=== PATIENT | male | born 1970 | race Caucasian/White ===

== ENCOUNTER 2018-01-04 08:48 | Day surgery (SDC) | payer OTHER ==
[~2018-01-04] VITALS: Ht 188 cm; Wt 101.2 kg
--- NOTE | ~2018-01-04 | HP ---
PATIENT: SHAAN MONSIVAIS MEDICAL RECORD: [id number] ACCOUNT: [id number] LOCATION:[facility] : 66 ADMISSION DATE: 01/04/18 HISTORY AND PHYSICAL EXAMINATION HISTORY: Shaan is a 47 years old. He has been having problems with nasal obstruction. He cannot breathe through his nose at all. He has been refractory to aggressive medical management. He snores horribly. He is being admitted for septoplasty, turbinate reduction, and uvulectomy. PAST MEDICAL HISTORY: Includes reactive airway disease. CURRENT MEDICATIONS: Naproxen, rosuvastatin, folic acid, methotrexate. ALLERGIES: PENICILLIN. PHYSICAL EXAMINATION: GENERAL: Healthy appearing, developmentally normal. FACE: Normal and symmetric. No lesions. EYES: Sclerae and conjunctivae are normal. EARS: Canals and TMs are normal. NOSE: He has got really tremendous severe septal deviation, possibly an old septal fracture, total obstruction of the nasal passage bilaterally. ORAL CAVITY AND OROPHARYNX: Status post tonsillectomy. He has got prominent edematous uvula tip. NECK: No masses. No adenopathy. CHEST: Clear. CARDIOVASCULAR: Regular rate and rhythm. No murmur. EXTREMITIES: Normal. IMPRESSION: Nasal obstruction, septal deviation, turbinate hypertrophy, recurrent uvula edema. PLAN: Septoplasty, bilateral inferior turbinate reduction, and partial uvulectomy. TRANSINT:[id number] Voice Confirmation ID: [id number] DOCUMENT ID: [id number] KADEN PARMAR MD at 1711 CC: [id number] DICTATION DATE: 01/03/18 1351 [facility] [facility]: 01/03/18 1429 [facility] 01/04/18 [place] [id number]
--- NOTE | ~2018-01-04 | OP ---
PATIENT NAME: LION MONSIVAIS MEDICAL RECORD: [id number] :66 [facility] [place] AD[facility] DATE: SURGEON: KADEN ZARAGOZA MD DATE OF OPERATION: 01/04/2018 PREOPERATIVE DIAGNOSES: Nasal obstruction, septal deviation, turbinate hypertrophy, and recurrent uvula edema. POSTOPERATIVE DIAGNOSES: Nasal obstruction, septal deviation, turbinate hypertrophy, and recurrent uvula edema. PROCEDURES: Septoplasty, bilateral inferior turbinate reduction, partial uvulectomy. SURGEON: Kaden Zaragoza MD ANESTHESIA: General orotracheal. BLOOD LOSS: Less than 5 cc. PACKING: Corbett splints bilaterally with some mupirocin ointment. COMPLICATIONS: None. DISPOSITION: Recovery, stable. DESCRIPTION OF PROCEDURE: He was brought to the operating room, placed in supine position, sedated and intubated by anesthesia. The eyes were taped. The nose was examined first using a headlight and nasal speculum. He had been decongested with Afrin preoperatively. The septum, floor of the nose, and both inferior turbinates were injected with a total of 1.5 cc of 1% lidocaine with 1:100,000 epinephrine. Afrin pledgets were placed in both sides. He was prepped and draped in usual sterile fashion. Then, all the Afrin pledgets were removed. A left-sided [place] incision was made and ipsilateral mucoperichondrial flap was elevated and a large bony cartilaginous spur on the left side was isolated. This was dissected free and removed. This allowed mobility of the septum back over the maxillary spine. Relaxing incisions were made superiorly in the cartilaginous septum to allow it to move back to the midline and the posterior inferior contralateral mucoperichondrial flap was elevated over a bony spur. Scissors were used to make a cut above and below that to remove that bony spur posteriorly. This allowed the septum to fall back to the midline. Both inferior turbinates were medialized with a freer. A [place] was used to take down the inferior redundant portion of the turbinates. Suction cautery on a setting of 25 was used to stop any bleeding and then they were both outfractured. The septum was flat, midline, good airway on both sides. Nasopharynx was suctioned out, interrupted 4-0 chromic were used to close the Oscar incision. Corbett splints with mupirocin ointment were placed in both sides of the nose and sutured to the anterior membranous septum with a 2-0 Prolene on a Godwin needle. Then, he was repositioned for uvulectomy. Using a headlight, a Sol-Ha mouth gag was carefully inserted and elevated on a towel on his chest. The palate was examined and palpated. It was normal. He had small tonsils. The uvula was grasped, the base was injected with 0.5 cc of 1% lidocaine with 1:100,000 epinephrine. A spatula cautery on a setting of 10 was used to resect most of the uvula leaving the base of the muscular portion not disturbing the palate at all. This was removed and the bleeding was OPERATIVE REPORT [id number] LION MONSIVAIS controlled with cautery and the wound was closed with interrupted 3-0 Vicryl. The pharynx was suctioned. There was no bleeding. Sol-Ha mouth gag was let down and removed. He was awakened, extubated, and transported to recovery in good condition. No complications. TRANSINT:[id number] Voice Confirmation ID: [id number] DOCUMENT ID: [id number] KADEN ZARAGOZA MD at 1711 CC: [id number] DICTATION DATE: 01/04/18 1500 [facility]: 01/04/18 1512 [facility] 01/04/18 [facility] [address] [place] [address]
[2018-01-04] MEDS ORDERED: FOLIC ACID1 MG PO (10:48)
[2018-01-04] MEDS ORDERED: NAPROSYN500 MG PO (10:49)
[2018-01-04] MEDS ORDERED: CRESTOR5 MG PO (10:49)
[2018-01-04] MEDS ORDERED: METHOTREXATE2.5 MG PO (10:50)
[2018-01-04 10:56] VITALS: BP 108/64; Ht 188 cm; Wt 101.2 kg
== END 2018-01-04 16:35 | disposition home or self-care (01) ==
LOC: D.OPS 08:48
DX: J34.89 Other specified disorders of nose and nasal sinuses (principal); J34.2 Deviated nasal septum; J34.3 Hypertrophy of nasal turbinates; K13.79 Other lesions of oral mucosa; Z01.812 Encounter for preprocedural laboratory examination